=== PATIENT | male | born 1960 | race Caucasian/White ===

== ENCOUNTER 2020-02-05 22:56 | Emergency (ER) | payer OTHER ==
[2020-02-05] MEDS ORDERED: Sulfamethoxazole/Trimethoprim 800-160 MG Tab PO STA (23:11)
[2020-02-05] MEDS ORDERED: Take Home: Sulfamethoxazole/Trimethoprim 800-160 MG Tab, 2 Tab Pack PO ONE (23:11)
--- NOTE | 2020-02-05 23:18 | EDM.PDOC ---
ED HPI GENERAL MEDICAL PROBLEM - General Chief Complaint: Lower Extremity Injury/Pain Stated Complaint: infected toe Time Seen by Provider: 02/05/20 23:00 Source of Information: Reports: Patient History Limitations: Reports: No Limitations - History of Present Illness INITIAL COMMENTS - FREE TEXT/NARRATIVE: Patient comes into the emergency department with complaint of a left great toe foot infection. Patient states he was walking and stepped on a nail that penetrated through his shoe and the skin of his foot. He denies having the nail stuck in his toe at all. He states that he was able to do with his activities and later when he took off his sock and shoe he noted blood. He states that over the course the last 24 hours he noticed that the swelling and redness in th e toe has increased. Patient denies taking any medication or using any ice or the extremity. Patient states he also noted some drainage starting to form tonight. Patient did become concerned and wanted to have it checked out immediately. Patient has had a similar incident happened in the past entire leg did become infected. He does not want that to happen again. Patient denies any swelling up his leg or redness of the leg. He also denies any CMS or range of motion concerns. Patient denies any chest pain, shortness of breath, fever, nausea, vomiting, GI upset or peripheral edema. Also denies any covid-19 symptoms has been relatively healthy. Patient does believe he was given a tetanus about 5-6 years ago. Onset: Gradual Quality: Reports: Stabbing Severity: Mild Improves with: Reports: Immobilization Worsens with: Reports: Movement Context: Reports: Activity Associated Symptoms: Reports: No Other Symptoms - Related Data Home Meds: Home Meds Sulfamethoxazole/Trimethoprim [Bactrim Ds Tablet] 1 each PO BID 6 Days #12 tablet 02/05/20 [Rx] ED ROS GENERAL - Review of Systems Review Of Systems: Comprehensive ROS is negative, except as noted in HPI. Constitutional: Reports: No Symptoms HEENT: Reports: No Symptoms Respiratory: Reports: No Symptoms Cardiovascular: Reports: No Symptoms Endocrine: Reports: No Symptoms GI/Abdominal: Reports: No Symptoms Musculoskeletal: Reports: No Symptoms Neurological: Reports: No Symptoms Psychiatric: Reports: No Symptoms Hematologic/Lymphatic: Reports: No Symptoms ED EXAM, GENERAL - Physical Exam Exam: See Below Exam Limited By: No Limitations General Appearance: Alert, WD/WN, No Apparent Distress Peripheral Pulses: 4+: Radial (L), Radial (R), Dorsalis Pedis (L), Dorsalis Pedis (R) Extremities: Normal Range of Motion, Non-Tender, No Pedal Edema, Normal Capillary Refill, Other (left great toe: abrasion with pus formation anc crusting over size about 0.5cm diameter. redness and mild swelling noted. ) Neurological: Alert, Oriented Psychiatric: Normal Affect, Normal Mood Skin Exam: Warm, Dry, Intact Course - Orders/Labs/Meds Meds: Medications Discontinued Medications Generic Name Dose Route Start Last Admin Trade Name Judy PRN Reason Stop Dose Admin Trimethoprim/Sulfamethoxazole 1 tab 02/05/20 23:11 02/05/20 23:15 Septra Ds PO 02/05/20 23:12 1 tab NOW STA Administration Trimethoprim/Sulfamethoxazole 1 packet 02/05/20 23:11 02/05/20 23:15 Take Home: Sulfameth/Trimet 800-160mg, 2 Pack PO 02/05/20 23:12 1 packet ONETIME ONE Administration Departure - Departure Time of Disposition: 23:35 Disposition: Home, Self-Care 01 Condition: Good Clinical Impression: Toe infection - Discharge Information *PRESCRIPTION DRUG MONITORING PROGRAM REVIEWED*: Not Applicable *COPY OF PRESCRIPTION DRUG MONITORING REPORT IN PATIENT BALDO: Not Applicable Prescriptions: Sulfamethoxazole/Trimethoprim [Bactrim Ds Tablet] 1 each PO BID 6 Days #12 tablet Instructions: Wound Care, Adult, Probiotics, Sulfamethoxazole; Trimethoprim, SMX-TMP tablets Referrals: PCP,None [Primary Care Provider] - Forms: ED Department Discharge Additional Instructions: 1. Rest 2. Keep the area clean and dry 3. Can use tylenol and ibuprofen as needed for pain and discomfort 4. Diet as tolerated 5. Activity as tolerated 6. Elevated the injured area above the level of the heart to decrease swelling and discomfort if applicable 7. Can use ice 3-4 times a day at 20-minute intervals to help with any swelling and discomfort 8. Follow-up with your primary care provider symptoms continue or to progress 9. Discharge information has been provided regarding your injury and wound care has been provided 10. Avoid an public pools or hot tubes until wound is healed. 11. soak the foot in soap and water 2 times a day until healed - Assessment/Plan Assessment:: 1. left toe infection Plan: 1. Wound cleansing completed 2. Bactrim given in ER, take home pack provided and script sent with pt. 3. Tdap vaccine history completed 4. Education regarding wound care, dressing changes, OTC medications, activity, diet, follow up care and when to seek care if warranted provided 5. Patient is to return to the clinic in 10 days to have sutures site evaluated and removed 6. Patient was encouraged to call or return if any questions or concerns arise.
[2020-02-05] MEDS ORDERED: Diphtheria,Pertussis(Acell),Tetanus Vaccine 0.5 ML Syringe IM ONE (23:25)
== END 2020-02-05 23:45 | disposition home or self-care (01) ==
LOC: VM.ED 22:56
DX: S90.412A Abrasion, left great toe, initial encounter (principal); L08.9 Local infection of the skin and subcutaneous tissue, unspecified; W45.0XXA Nail entering through skin, initial encounter
CPT/HCPCS: 99283; A9270